=== PATIENT | female | born 1990 | race African-American/Black ===

== ENCOUNTER 2018-07-15 21:05 | Emergency (ER) | payer MEDICAID ==
[~2018-07-15] VITALS: Ht 149.9 cm; Wt 64.0 kg
[2018-07-15] MEDS ORDERED: SODIUM CHLORIDE 0.9% 1,000 ML IV ONE (21:43)
[2018-07-15] MEDS ORDERED: ONDANSETRON HCL 4MG/2ML INJ IV ONE (21:45)
[2018-07-15] MEDS ORDERED: ACETAMINOPHEN 325MG TABLET PO PRN (21:45)
[2018-07-15 23:16] LABS: CHLORIDE 106 mEq/L (98-107)
[2018-07-15 23:23] LABS: BASOPHILS % 0.3 % (0.0-2.0); EOSINOPHILS % 2.3 % (0.0-5.0); HEMATOCRIT. 39.6 % (36.0-48.0); HEMOGLOBIN. 13.6 g/dL (12.0-16.0); LYMPHOCYTES % 18.2 % (20.0-50.0); MEAN CORPUSCULAR VOLUME 90.4 fL (81.0-99.0); MEAN PLATELET VOLUME 8.7 fl (7.4-10.4); NEUTROPHILS % 69.2 % (40.0-76.0); PLATELET 260 x1000/uL (130-400); RED BLOOD CELL COUNT 4.39 mill/uL (4.2-5.4); RED CELL DISTRIBUTION WIDTH 12.5 % (11.6-14.6)
[2018-07-15 23:39] LABS: B-HCG QUANTITATIVE 93287 mIU/mL (<3)
[2018-07-16 00:36] VITALS: BP 134/77
== END 2018-07-16 00:36 | disposition home or self-care (01) ==
LOC: ER 21:05
DX: O21.0 Mild hyperemesis gravidarum (principal); Z3A.09 9 weeks gestation of pregnancy; F12.10 Cannabis abuse, uncomplicated; R14.0 Abdominal distension (gaseous)
CPT/HCPCS: 36415; 76801; 76817; 80053; 81025; 84702; 85025; 96361; 96374; 99284; J2405; J7030; Z7610

== ENCOUNTER 2019-01-23 12:12 | Observation (INO) | payer MEDICAID ==
[~2019-01-23] VITALS: Ht 149.9 cm; Wt 83.9 kg
[2019-01-23] MEDS ORDERED: LACTATED RINGERS 1,000 ML IV SCH (13:15)
[2019-01-23 13:47] LABS: CLARITY URINE CLEAR (CLEAR); COLOR URINE YELLOW (YELLOW); KETONES URINE NEGATIVE (NEGATIVE); LEUKOCYTE ESTERASE URINE NEGATIVE (NEGATIVE); NITRITE URINE NEGATIVE (NEGATIVE); OCCULT BLOOD URINE NEGATIVE (NEGATIVE); PROTEIN URINE 1+ (NEGATIVE); SPECIFIC GRAVITY URINE 1.012 (1.005-1.030); UROBILINOGEN URINE 0.2 E.U./dL (0.2-1.0)
== END 2019-01-23 16:00 | disposition home or self-care (01) ==
LOC: 8 EST LDRP 12:12
PROVIDERS: ADMIT Obstetrics & Gynecology; ATTEND Obstetrics & Gynecology
DX: O62.9 Abnormality of forces of labor, unspecified (principal); Z3A.36 36 weeks gestation of pregnancy
CPT/HCPCS: 76805; 76818; 81003; 87070; 87081; 99281; G0378; 96360; 96361

== ENCOUNTER 2019-02-09 16:11 | Inpatient (IN) | payer MEDICAID ==
[~2019-02-09] VITALS: Ht 149.9 cm; Wt 85.3 kg
[2019-02-09] MEDS ORDERED: LACTATED RINGERS 1,000 ML IV SCH (16:24)
[2019-02-09] MEDS ORDERED: METHYLERGONOVINE MALEATE 0.2 MG/ML IM PRN (16:30)
[2019-02-09] MEDS ORDERED: LIDOCAINE HCL 1% 20ML VIAL (Pyxis) INJ INFIL SCH (16:30)
[2019-02-09] MEDS ORDERED: CARBOPROST TROMETHAMINE 250 MCG/ML AMPUL IM PRN (16:30)
[2019-02-09] MEDS ORDERED: BUTORPHANOL TARTRATE 2 MG/ML VIAL IV PRN (16:30)
[2019-02-09 17:17] LABS: CLARITY URINE CLOUDY (CLEAR); COLOR URINE YELLOW (YELLOW); KETONES URINE NEGATIVE (NEGATIVE); LEUKOCYTE ESTERASE URINE NEGATIVE (NEGATIVE); NITRITE URINE NEGATIVE (NEGATIVE); OCCULT BLOOD URINE 3+ (NEGATIVE); PROTEIN URINE 2+ (NEGATIVE); SPECIFIC GRAVITY URINE 1.007 (1.005-1.030); UROBILINOGEN URINE 0.2 E.U./dL (0.2-1.0)
[2019-02-09 17:20] LABS: BASOPHILS % 0.7 % (0.0-2.0); EOSINOPHILS % 0.2 % (0.0-5.0); HEMATOCRIT. 35.1 % (36.0-48.0); LYMPHOCYTES % 12.3 % (20.0-50.0); MEAN CORPUSCULAR HEMOGLOBIN 30.8 pg (28.0-32.0); MEAN CORPUSCULAR VOLUME 89.6 fL (81.0-99.0); MEAN PLATELET VOLUME 10.2 fl (7.4-10.4); MONOCYTES % 7.6 % (2.0-8.0); NEUTROPHILS % 79.2 % (40.0-76.0); PLATELET 227 x1000/uL (130-400); RED BLOOD CELL COUNT 3.92 mill/uL (4.2-5.4); RED CELL DISTRIBUTION WIDTH 13.6 % (11.6-14.6)
[2019-02-09] MEDS: DEXT 5%/LR + PITOCIN 20UNITS/L 1,000 ML IV SCH (17:26)
[2019-02-09 17:29] LABS: INR 0.9; PARTIAL THROMBOPLASTIN TIME 28.3 sec (23.4-31.0); PROTHROMBIN TIME 9.2 sec (9.6-11.0)
[2019-02-09 17:43] LABS: *AMPHETAMINES SCREEN URINE NEGATIVE (NEGATIVE); *BARBITURATES SCREEN URINE NEGATIVE (NEGATIVE)
[2019-02-09 17:44] LABS: *BENZODIAZEPINES SCREEN URINE NEGATIVE (NEGATIVE); *COCAINE SCREEN URINE NEGATIVE (NEGATIVE); METHADONE URINE SCREEN NEGATIVE (NEGATIVE); OPIATES URINE SCREEN NEGATIVE (NEGATIVE)
[2019-02-09 17:45] LABS: CANNABINOID URINE SCREEN NEGATIVE (NEGATIVE); PHENCYCLIDINE URINE SCREEN NEGATIVE (NEGATIVE)
[2019-02-09 18:00] LABS: HEPATITIS B SURFACE ANTIGEN NEGATIVE
[2019-02-09] MEDS ORDERED: ROPIVACAINE HCL 2MG/ML (0.2%) 200ML BOTTLE IR ONE (21:30)
[2019-02-09] MEDS ORDERED: FENTANYL CITRATE/PF 50MCG/ML 2ML VIAL ONE (21:30)
[2019-02-09] MEDS ORDERED: ROPIVACAINE HCL/PF EPIDURAL 200 ML EPI PRN (21:30)
[2019-02-10] MEDS ORDERED: FENTANYL CITRATE/PF 50MCG/ML 2ML VIAL ONE (09:00)
[2019-02-10] MEDS ORDERED: CEFAZOLIN SODIUM 1000MG/VIAL ONE (10:19)
[2019-02-10] MEDS ORDERED: KETAMINE HCL 50 MG/ML 10ML ONE (10:20)
[2019-02-10] MEDS ORDERED: MORPHINE SULFATE/PF 1MG/ML 10ML AMP ONE (10:20)
[2019-02-10] MEDS ORDERED: MIDAZOLAM HCL 2 MG/2 ML VIAL ONE (10:20)
[2019-02-10] MEDS ORDERED: LIDOCAINE HCL 2%/EPINEPHRINE 1:100,000 20 ML VIAL INFIL ONE (10:26)
[2019-02-10] MEDS ORDERED: DEXT 5%/LR + PITOCIN 20UNITS/L 1,000 ML IV SCH (11:47)
[2019-02-10] MEDS ORDERED: ONDANSETRON HCL 4MG/2ML INJ IV PRN (12:00)
[2019-02-10] MEDS ORDERED: HYDROCODONE/ACETAMINOPHEN 5/325MG TABLET PO PRN (12:00)
[2019-02-10] MEDS ORDERED: IBUPROFEN 400MG TABLET PO PRN (12:00)
[2019-02-10] MEDS ORDERED: ONDANSETRON HCL 4MG/2ML INJ ONE (12:08)
[2019-02-10] MEDS ORDERED: KETOROLAC 60MG/2ML VIAL IM ONE (12:08)
[2019-02-10] MEDS ORDERED: NALOXONE HCL 0.4 MG/ML 1ML VIAL IV PRN (12:45)
[2019-02-10] MEDS ORDERED: BUTORPHANOL TARTRATE 2 MG/ML VIAL IV PRN ×2 (12:45)
[2019-02-10] MEDS ORDERED: DIPHENHYDRAMINE 50MG/ML VIAL IV PRN ×2 (12:45)
[2019-02-10 14:15] VITALS: BP 139/71
[2019-02-10 14:45] VITALS: BP 145/67
[2019-02-10] MEDS: SIMETHICONE 80MG TABLET CHEW PO SCH ×2 (18:00→21:00)
[2019-02-10] MEDS: KETOROLAC 30MG/ML VIAL IV SCH ×2 (18:19→23:43)
[2019-02-10] MEDS: DEXT 5%/LR + PITOCIN 20UNITS/L 1,000 ML IV SCH (18:20)
[2019-02-10] MEDS: DOCUSATE SODIUM 100MG CAPSULE PO SCH (21:00)
[2019-02-10] MEDS: MAGNESIUM/ALUMINUM HYDROXIDE/SIMETHICONE 30ML UDC PO SCH (21:00)
[2019-02-10 22:00] VITALS: BP 135/69
[2019-02-11] MEDS: DEXT 5%/LR + PITOCIN 20UNITS/L 1,000 ML IV SCH ×2 (02:11→11:12)
[2019-02-11 06:00] VITALS: BP 125/70
[2019-02-11] MEDS: KETOROLAC 30MG/ML VIAL IV SCH (06:00)
[2019-02-11] MEDS: FERROUS SULFATE 325MG TABLET PO SCH ×2 (07:30→17:30)
[2019-02-11] MEDS: MAGNESIUM/ALUMINUM HYDROXIDE/SIMETHICONE 30ML UDC PO SCH ×2 (07:30→12:30)
[2019-02-11 08:00] VITALS: BP 133/87
[2019-02-11 08:08] LABS: BASOPHILS % 0.1 % (0.0-2.0); EOSINOPHILS % 0.2 % (0.0-5.0); HEMATOCRIT. 32.7 % (36.0-48.0); HEMOGLOBIN. 11.1 g/dL (12.0-16.0); LYMPHOCYTES % 10.1 % (20.0-50.0); MEAN CORPUSCULAR HEMOGLOBIN 30.8 pg (28.0-32.0); MEAN CORPUSCULAR VOLUME 90.6 fL (81.0-99.0); MEAN PLATELET VOLUME 9.6 fl (7.4-10.4); MONOCYTES % 7.4 % (2.0-8.0); NEUTROPHILS % 82.2 % (40.0-76.0); PLATELET 212 x1000/uL (130-400); RED BLOOD CELL COUNT 3.61 mill/uL (4.2-5.4); RED CELL DISTRIBUTION WIDTH 13.5 % (11.6-14.6)
[2019-02-11] MEDS: ACETAMINOPHEN WITH CODEINE 300/30MG TABLET PO PRN ×3 (11:07→21:08)
[2019-02-11] MEDS: SIMETHICONE 80MG TABLET CHEW PO SCH ×2 (13:00→21:09)
[2019-02-11 15:46] VITALS: BP 139/83
[2019-02-11 20:40] VITALS: BP 138/80
[2019-02-12 04:00] VITALS: BP 140/84
[2019-02-12] MEDS: ACETAMINOPHEN WITH CODEINE 300/30MG TABLET PO PRN ×2 (07:08→17:43)
[2019-02-12 08:00] VITALS: BP 129/73
[2019-02-12] MEDS ORDERED: BISACODYL 10MG SUPP PR NR (08:30)
[2019-02-12] MEDS: MAGNESIUM/ALUMINUM HYDROXIDE/SIMETHICONE 30ML UDC PO SCH ×2 (08:34→20:52)
[2019-02-12] MEDS: FERROUS SULFATE 325MG TABLET PO SCH ×2 (08:34→18:25)
[2019-02-12] MEDS: SIMETHICONE 80MG TABLET CHEW PO SCH ×3 (08:35→20:53)
[2019-02-12 12:00] VITALS: BP 133/84
[2019-02-12 16:00] VITALS: BP 136/77
[2019-02-12 19:30] VITALS: BP 60/133
[2019-02-12] MEDS: DOCUSATE SODIUM 100MG CAPSULE PO SCH (20:53)
[2019-02-13 04:00] VITALS: BP 130/82
[2019-02-13 08:00] VITALS: BP 150/81
[2019-02-13] MEDS: ACETAMINOPHEN WITH CODEINE 300/30MG TABLET PO PRN (08:40)
[2019-02-13] MEDS: SIMETHICONE 80MG TABLET CHEW PO SCH (08:41)
== END 2019-02-13 12:00 | disposition home or self-care (01) | DRG 540 ==
LOC: 8 EST LDRP 16:11 → OBSVTOIN 16:11 → 8EST 02-10 14:15
PROVIDERS: ADMIT Obstetrics & Gynecology; ATTEND Obstetrics & Gynecology
PROC: 10D00Z1 Extraction of Products of Conception, Low, Open Approach (ICD-10-PCS; principal; 2019-02-10)
DX: O77.0 Labor and delivery complicated by meconium in amniotic fluid (principal); O76 Abnormality in fetal heart rate and rhythm complicating labor and delivery; Z37.0 Single live birth; Z3A.39 39 weeks gestation of pregnancy
CPT/HCPCS: 36415; 80305; 81003; 86592; 86703; 86762; 86850; 86900; 87340; 88307; 99281; G0378; J0690; J1200; J1885; J2250; J2274; J2405; J2590; J2795; J3010; J3490

== ENCOUNTER 2021-09-11 09:40 | Emergency (ER) | payer MEDICAID ==
[~2021-09-11] VITALS: Ht 162.6 cm; Wt 77.0 kg
[2021-09-11] MEDS ORDERED: ACETAMINOPHEN 325MG TABLET PO STA (10:15)
[2021-09-11 10:25] LABS: BASOPHILS % 0.3 % (0.0-2.0); EOSINOPHILS % 0.2 % (0.0-5.0); HEMATOCRIT. 36.1 % (36.0-48.0); HEMOGLOBIN. 12.4 g/dL (12.0-16.0); LYMPHOCYTES % 18.4 % (20.0-50.0); MEAN CORPUSCULAR HEMOGLOBIN 30.3 pg (28.0-32.0); MEAN CORPUSCULAR VOLUME 88.3 fL (81.0-99.0); MEAN PLATELET VOLUME 8.4 fl (7.4-10.4); MONOCYTES % 6.5 % (2.0-8.0); NEUTROPHILS % 74.6 % (40.0-76.0); PLATELET 279 x1000/uL (130-400); RED BLOOD CELL COUNT 4.08 mill/uL (4.2-5.4); RED CELL DISTRIBUTION WIDTH 12.9 % (11.6-14.6)
[2021-09-11 10:26] LABS: CLARITY URINE CLEAR (CLEAR); COLOR URINE YELLOW (YELLOW); KETONES URINE NEGATIVE (NEGATIVE); LEUKOCYTE ESTERASE URINE NEGATIVE (NEGATIVE); NITRITE URINE NEGATIVE (NEGATIVE); OCCULT BLOOD URINE NEGATIVE (NEGATIVE); PH URINE 7.5 (4.5-8.0); PROTEIN URINE NEGATIVE (NEGATIVE); SPECIFIC GRAVITY URINE 1.008 (1.005-1.030); UROBILINOGEN URINE 0.2 E.U./dL (0.2-1.0)
[2021-09-11 10:33] LABS: CHLORIDE 106 mEq/L (98-107)
[2021-09-11 10:56] LABS: B-HCG QUANTITATIVE 48104 mIU/mL (<3)
[2021-09-11 13:00] VITALS: BP 126/69
== END 2021-09-11 13:05 | disposition home or self-care (01) ==
LOC: ER 09:40
DX: O99.612 Diseases of the digestive system complicating pregnancy, second trimester (principal); R10.32 Left lower quadrant pain; Z3A.15 15 weeks gestation of pregnancy
CPT/HCPCS: 36415; 76815; 80053; 81003; 81025; 84702; 85025; 99284

== ENCOUNTER 2022-01-04 12:13 | Observation (INO) | payer MEDICAID ==
[~2022-01-04] VITALS: Ht 149.9 cm; Wt 89.8 kg
[2022-01-04] MEDS ORDERED: LACTATED RINGERS 1,000 ML IV ONE (13:15)
[2022-01-04] MEDS ORDERED: ACETAMINOPHEN 500MG TABLET PO PRN (13:15)
[2022-01-04 14:17] LABS: CLARITY URINE CLOUDY (CLEAR); COLOR URINE YELLOW (YELLOW); KETONES URINE NEGATIVE (NEGATIVE); LEUKOCYTE ESTERASE URINE TRACE (NEGATIVE); NITRITE URINE NEGATIVE (NEGATIVE); OCCULT BLOOD URINE NEGATIVE (NEGATIVE); PH URINE 6.5 (4.5-8.0); PROTEIN URINE TRACE (NEGATIVE); SPECIFIC GRAVITY URINE 1.014 (1.005-1.030)
[2022-01-04] MEDS ORDERED: CEFAZOLIN 2,000 MG in DEXT 5% WATER 100 ML IV SCH (16:30)
== END 2022-01-04 18:40 | disposition home or self-care (01) ==
LOC: 8 EST LDRP 12:13
PROVIDERS: ADMIT Obstetrics & Gynecology; ATTEND Obstetrics & Gynecology
DX: O26.893 Other specified pregnancy related conditions, third trimester (principal); R10.9 Unspecified abdominal pain; O62.9 Abnormality of forces of labor, unspecified; Z3A.31 31 weeks gestation of pregnancy; Z98.891 History of uterine scar from previous surgery
CPT/HCPCS: 59025; 76805; 76818; 81003; 96361; 96365; G0378; J0690; J7060; 96360; 99281

== ENCOUNTER 2022-01-11 15:51 | Observation (INO) | payer MEDICAID ==
[~2022-01-11] VITALS: Ht 149.9 cm; Wt 86.2 kg
[2022-01-11] MEDS ORDERED: BETAMETHASONE ACET/BETAMET 30 MG/5 ML VIAL IM NR (16:00)
== END 2022-01-11 16:30 | disposition home or self-care (01) ==
LOC: 8 EST LDRP 15:51
PROVIDERS: ADMIT Obstetrics & Gynecology; ATTEND Obstetrics & Gynecology
DX: O36.8330 Maternal care for abnormalities of the fetal heart rate or rhythm, third trimester, not applicable or unspecified (principal); Z3A.32 32 weeks gestation of pregnancy
CPT/HCPCS: 96372; G0378; J0702; 99281; G0379

== ENCOUNTER 2022-01-30 21:46 | Inpatient (IN) | payer MEDICAID ==
[~2022-01-30] VITALS: Ht 149.9 cm; Wt 87.1 kg
[2022-01-30] MEDS ORDERED: PREN1TAB78 PO (21:50)
[2022-01-30] MEDS ORDERED: LACTATED RINGERS 1,000 ML IV ONE (22:00)
[2022-01-30 22:31] LABS: CLARITY URINE CLEAR (CLEAR); COLOR URINE YELLOW (YELLOW); KETONES URINE NEGATIVE (NEGATIVE); LEUKOCYTE ESTERASE URINE TRACE (NEGATIVE); NITRITE URINE NEGATIVE (NEGATIVE); OCCULT BLOOD URINE NEGATIVE (NEGATIVE); PH URINE 6.5 (4.5-8.0); PROTEIN URINE NEGATIVE (NEGATIVE)
[2022-01-30 22:32] LABS: BASOPHILS % 0.4 % (0.0-2.0); EOSINOPHILS % 0.2 % (0.0-5.0); HEMATOCRIT. 35.8 % (36.0-48.0); HEMOGLOBIN. 12.4 g/dL (12.0-16.0); LYMPHOCYTES % 19.6 % (20.0-50.0); MEAN CORPUSCULAR HEMOGLOBIN 30.7 pg (28.0-32.0); MEAN CORPUSCULAR VOLUME 88.7 fL (81.0-99.0); MEAN PLATELET VOLUME 9.8 fl (7.4-10.4); MONOCYTES % 9.2 % (2.0-8.0); NEUTROPHILS % 70.6 % (40.0-76.0); PLATELET 265 x1000/uL (130-400); RED BLOOD CELL COUNT 4.04 mill/uL (4.2-5.4); RED CELL DISTRIBUTION WIDTH 13.9 % (11.6-14.6)
[2022-01-30 22:45] LABS: INR 0.9; PARTIAL THROMBOPLASTIN TIME 23.6 sec (23.4-31.0); PROTHROMBIN TIME 9.8 sec (9.6-11.0)
[2022-01-30 22:49] LABS: *AMPHETAMINES SCREEN URINE NEGATIVE (NEGATIVE); *BARBITURATES SCREEN URINE NEGATIVE (NEGATIVE); *BENZODIAZEPINES SCREEN URINE NEGATIVE (NEGATIVE); *COCAINE SCREEN URINE NEGATIVE (NEGATIVE); CANNABINOID URINE SCREEN NEGATIVE (NEGATIVE); METHADONE URINE SCREEN NEGATIVE (NEGATIVE); OPIATES URINE SCREEN NEGATIVE (NEGATIVE); PHENCYCLIDINE URINE SCREEN NEGATIVE (NEGATIVE)
[2022-01-30] MEDS ORDERED: TERBUTALINE SULFATE 1MG/ML VIAL SUBCUT ONE (23:30)
[2022-01-31] MEDS: LACTATED RINGERS 1,000 ML IV SCH ×2 (00:17→07:57)
[2022-01-31] MEDS ORDERED: CEFAZOLIN SODIUM 1000MG/VIAL ONE (09:38)
[2022-01-31] MEDS ORDERED: DEXAMETHASONE 4MG/ML 1ML VIAL ONE (09:38)
[2022-01-31] MEDS ORDERED: ONDANSETRON HCL 4MG/2ML INJ ONE (09:38)
[2022-01-31] MEDS ORDERED: OXYTOCIN 10 UNITS/ML 1ML ONE (09:38)
[2022-01-31] MEDS ORDERED: EPHEDRINE SULFATE 50MG/ML VIAL ONE (09:39)
[2022-01-31] MEDS ORDERED: PHENYLEPHRINE HCL 10 MG/ML 1ML (IV VIAL) IV ONE (09:39)
[2022-01-31] MEDS ORDERED: RHO(D) IMMUNE GLOBULIN 300 MCG/SYR IM NR (10:00)
[2022-01-31] MEDS ORDERED: KETOROLAC 60MG/2ML VIAL IM ONE (10:02)
[2022-01-31 10:41] LABS: CLARITY URINE CLEAR (CLEAR); COLOR URINE YELLOW (YELLOW); KETONES URINE NEGATIVE (NEGATIVE); LEUKOCYTE ESTERASE URINE NEGATIVE (NEGATIVE); NITRITE URINE NEGATIVE (NEGATIVE); OCCULT BLOOD URINE NEGATIVE (NEGATIVE); PH URINE 5.5 (4.5-8.0); PROTEIN URINE NEGATIVE (NEGATIVE)
[2022-01-31 10:49] LABS: BASOPHILS % 0.1 % (0.0-2.0); EOSINOPHILS % 0.3 % (0.0-5.0); HEMATOCRIT. 33.6 % (36.0-48.0); HEMOGLOBIN. 11.6 g/dL (12.0-16.0); LYMPHOCYTES % 17.5 % (20.0-50.0); MEAN CORPUSCULAR HEMOGLOBIN 30.8 pg (28.0-32.0); MEAN CORPUSCULAR VOLUME 89.6 fL (81.0-99.0); MEAN PLATELET VOLUME 9.7 fl (7.4-10.4); MONOCYTES % 6.7 % (2.0-8.0); NEUTROPHILS % 75.4 % (40.0-76.0); PLATELET 246 x1000/uL (130-400); RED BLOOD CELL COUNT 3.75 mill/uL (4.2-5.4); RED CELL DISTRIBUTION WIDTH 14.1 % (11.6-14.6)
[2022-01-31 10:53] LABS: INR 0.9; PARTIAL THROMBOPLASTIN TIME 27.1 sec (23.4-31.0); PROTHROMBIN TIME 9.8 sec (9.6-11.0)
[2022-01-31 11:35] LABS: *AMPHETAMINES SCREEN URINE NEGATIVE (NEGATIVE); *BARBITURATES SCREEN URINE NEGATIVE (NEGATIVE); *BENZODIAZEPINES SCREEN URINE NEGATIVE (NEGATIVE); *COCAINE SCREEN URINE NEGATIVE (NEGATIVE); CANNABINOID URINE SCREEN NEGATIVE (NEGATIVE); METHADONE URINE SCREEN NEGATIVE (NEGATIVE); OPIATES URINE SCREEN NEGATIVE (NEGATIVE); PHENCYCLIDINE URINE SCREEN NEGATIVE (NEGATIVE)
[2022-01-31 12:08] LABS: HEPATITIS B SURFACE ANTIGEN NEGATIVE
[2022-01-31] MEDS ORDERED: CITRIC ACID/SODIUM CITRATE SOLN 30ML UDC PO NR (14:00)
[2022-01-31] MEDS ORDERED: MORPHINE SULFATE/PF 1MG/ML 10ML AMP ONE (14:03)
[2022-01-31] MEDS ORDERED: GLYCOPYRROLATE 0.2 MG/ML 2ML VIAL ONE (14:27)
[2022-01-31] MEDS ORDERED: NALOXONE HCL 0.4 MG/ML 1ML VIAL IV PRN (14:45)
[2022-01-31] MEDS ORDERED: MORPHINE SULFATE 2 MG/ML CPJ (NOT FOR IM USE) IV PRN (14:45)
[2022-01-31] MEDS ORDERED: FENTANYL CITRATE/PF 50MCG/ML 2ML VIAL IV PRN (14:45)
[2022-01-31] MEDS ORDERED: KETOROLAC 30MG/ML VIAL IV PRN (14:45)
[2022-01-31] MEDS ORDERED: HEMORRHOIDAL SUPP PR PRN (15:15)
[2022-01-31] MEDS ORDERED: ONDANSETRON HCL 4MG/2ML INJ IV PRN (15:15)
[2022-01-31] MEDS ORDERED: OXYTOCIN 30 UNITS/500ML NS PMX 500 ML IV SCH (15:15)
[2022-01-31] MEDS ORDERED: RHO(D) IMMUNE GLOBULIN 300 MCG/SYR IM PRN (15:15)
[2022-01-31] MEDS ORDERED: IBUPROFEN 400MG TABLET PO PRN (15:15)
[2022-01-31] MEDS ORDERED: LANOLIN OINT 7GM TUBE TOP PRN (15:15)
[2022-01-31 17:30] VITALS: BP 104/50
[2022-01-31] MEDS ORDERED: NALOXONE HCL 0.4MG/ML VIAL IV PRN (17:45)
[2022-01-31 18:30] VITALS: BP 115/61
[2022-01-31 20:00] VITALS: BP 110/56
[2022-01-31] MEDS: DOCUSATE SODIUM 100MG CAPSULE PO SCH (21:03)
[2022-01-31] MEDS: SIMETHICONE 80MG TABLET CHEW PO SCH (21:03)
[2022-01-31] MEDS: MAGNESIUM/ALUMINUM HYDROXIDE/SIMETHICONE 30ML UDC PO SCH (21:03)
[2022-02-01 04:00] VITALS: BP 122/73
[2022-02-01 06:57] LABS: EOSINOPHILS % 0.1 % (0.0-5.0); HEMATOCRIT. 31.7 % (36.0-48.0); HEMOGLOBIN. 11.1 g/dL (12.0-16.0); LYMPHOCYTES % 10.2 % (20.0-50.0); MEAN CORPUSCULAR HEMOGLOBIN 31.2 pg (28.0-32.0); MEAN CORPUSCULAR VOLUME 89.1 fL (81.0-99.0); MEAN PLATELET VOLUME 9.6 fl (7.4-10.4); MONOCYTES % 8.9 % (2.0-8.0); NEUTROPHILS % 80.8 % (40.0-76.0); PLATELET 216 x1000/uL (130-400); RED BLOOD CELL COUNT 3.56 mill/uL (4.2-5.4); RED CELL DISTRIBUTION WIDTH 13.9 % (11.6-14.6)
[2022-02-01 08:00] VITALS: BP 126/67
[2022-02-01] MEDS: FERROUS SULFATE 325MG TABLET PO SCH ×3 (08:25→17:30)
[2022-02-01] MEDS: SIMETHICONE 80MG TABLET CHEW PO SCH ×4 (08:25→21:24)
[2022-02-01] MEDS: PRENATAL VIT/FE FUMARATE/FA TABLET PO SCH (08:25)
[2022-02-01] MEDS: MAGNESIUM/ALUMINUM HYDROXIDE/SIMETHICONE 30ML UDC PO SCH ×4 (08:25→21:46)
[2022-02-01] MEDS: ACETAMINOPHEN WITH CODEINE 300/30MG TABLET PO PRN ×2 (13:02→21:25)
[2022-02-01] MEDS ORDERED: ACETAMINOPHEN WITH CODEINE 300/30MG TABLET PO PRN (15:15)
[2022-02-01 16:00] VITALS: BP 124/71
[2022-02-01 19:30] VITALS: BP 127/78
[2022-02-01] MEDS: DOCUSATE SODIUM 100MG CAPSULE PO SCH (21:24)
[2022-02-02 04:00] VITALS: BP 114/52
[2022-02-02] MEDS: ACETAMINOPHEN WITH CODEINE 300/30MG TABLET PO PRN ×2 (06:42→22:25)
[2022-02-02] MEDS ORDERED: BISACODYL 10MG SUPP PR PRN (07:15)
[2022-02-02 08:00] VITALS: BP 134/89
[2022-02-02] MEDS: PRENATAL VIT/FE FUMARATE/FA TABLET PO SCH (08:21)
[2022-02-02] MEDS: FERROUS SULFATE 325MG TABLET PO SCH ×3 (08:21→17:30)
[2022-02-02] MEDS: SIMETHICONE 80MG TABLET CHEW PO SCH ×4 (08:22→21:24)
[2022-02-02] MEDS: MAGNESIUM/ALUMINUM HYDROXIDE/SIMETHICONE 30ML UDC PO SCH ×4 (08:22→21:23)
[2022-02-02] MEDS: IBUPROFEN 800MG TABLET PO PRN (13:21)
[2022-02-02 18:00] VITALS: BP 117/69
[2022-02-02 19:30] VITALS: BP 136/78
[2022-02-02] MEDS: DOCUSATE SODIUM 100MG CAPSULE PO SCH (21:24)
[2022-02-03 04:00] VITALS: BP 132/71
[2022-02-03 07:02] LABS: BASOPHILS % 0.3 % (0.0-2.0); EOSINOPHILS % 1.7 % (0.0-5.0); HEMATOCRIT. 35.1 % (36.0-48.0); LYMPHOCYTES % 22.1 % (20.0-50.0); MEAN CORPUSCULAR HEMOGLOBIN 30.5 pg (28.0-32.0); MEAN CORPUSCULAR VOLUME 89.3 fL (81.0-99.0); MEAN PLATELET VOLUME 8.9 fl (7.4-10.4); MONOCYTES % 7.7 % (2.0-8.0); NEUTROPHILS % 68.2 % (40.0-76.0); PLATELET 276 x1000/uL (130-400); RED BLOOD CELL COUNT 3.93 mill/uL (4.2-5.4); RED CELL DISTRIBUTION WIDTH 14.2 % (11.6-14.6)
[2022-02-03 08:00] VITALS: BP 138/85
[2022-02-03] MEDS ORDERED: LACTATED RINGERS 1,000 ML IV SCH (17:45)
[2022-02-03] MEDS: PRENATAL VIT/FE FUMARATE/FA TABLET PO SCH (17:46)
[2022-02-03] MEDS: IBUPROFEN 800MG TABLET PO PRN (17:47)
[2022-02-03 20:00] VITALS: BP 138/84
[2022-02-03] MEDS: DOCUSATE SODIUM 100MG CAPSULE PO SCH (20:46)
[2022-02-03] MEDS: MAGNESIUM/ALUMINUM HYDROXIDE/SIMETHICONE 30ML UDC PO SCH (20:47)
[2022-02-03] MEDS: SIMETHICONE 80MG TABLET CHEW PO SCH (20:47)
== END 2022-02-04 12:30 | disposition home or self-care (01) | DRG 539 ==
LOC: 8 EST LDRP 21:46 → OBSVTOIN 21:46 → 8EST 01-31 17:40
PROVIDERS: ADMIT Obstetrics & Gynecology; ATTEND Obstetrics & Gynecology
PROC: 10D00Z1 Extraction of Products of Conception, Low, Open Approach (ICD-10-PCS; principal; 2022-01-31)
PROC: 0UB70ZZ Excision of Bilateral Fallopian Tubes, Open Approach (ICD-10-PCS; 2022-01-31)
DX: O34.211 Maternal care for low transverse scar from previous cesarean delivery (principal); D72.829 Elevated white blood cell count, unspecified; O99.03 Anemia complicating the puerperium; Z20.822 Contact with and (suspected) exposure to COVID-19; Z37.0 Single live birth; Z3A.35 35 weeks gestation of pregnancy; Z30.2 Encounter for sterilization
CPT/HCPCS: 36415; 76805; 76818; 80305; 81003; 85025; 85384; 86592; 86703; 86762; 86850; 86900; 87340; 87426; 88302; 88307; 99281; G0378; J0690; J1100; J1885; J2274; J2370; J2405; J3105; J3490; J7120; A4315